=== PATIENT | male | born 1985 | race African-American/Black ===

== ENCOUNTER 2017-03-09 05:40 | Emergency (ER) | payer SELFPAY ==
[2017-03-09 06:45] LABS: BILIRUBIN,URINE NEGATIVE (NEG); CLARITY,URINE CLEAR; COLOR,URINE YELLOW; GLUCOSE,URINE NEGATIVE (NEG); NITRITE,URINE NEGATIVE (NEG); PROTEIN,URINE NEGATIVE (NEG-TRACE)
[2017-03-09] MEDS: AZITHROMYCIN 250 MG TABLET. PO (07:11)
[2017-03-09] MEDS: cefTRIAXone IM 250 MG VIAL IM (07:11)
[2017-03-09] MEDS: metroNIDAZOLE 500 MG TABLET PO (07:11)
[2017-03-09 07:22] LABS: RBC,URINE 0 /HPF (0-2)
[2017-03-09 07:23] LABS: BACTERIA,URINE FEW /HPF (0-FEW); SQUAMOUS EPITHELIAL CELL,UR OCC /LPF
== END 2017-03-09 07:17 | disposition home or self-care (01) ==
LOC: ER 05:40
DX: A64 Unspecified sexually transmitted disease (principal)
CPT/HCPCS: 81001; 87491; 87591; 96372; 99284-25; J0696; Q0144